=== PATIENT | male | born 1985 | race Caucasian/White ===

== ENCOUNTER 2016-12-09 18:54 | Emergency (ER) | payer OTHER ==
--- NOTE | 2016-12-09 20:51 | ED CLINICAL REPORT ---
Clinical Report - Physicians/Mid Levels [facility] [address] [place] [place] [address] 12/09/2016 18:56 Patient: DAVID SHORT JR Time Seen: 19:40. Arrived- By private vehicle. Historian- patient. HISTORY OF PRESENT ILLNESS Chief Complaint: SKIN RASH. This started about 1 week ago and is still present. Not itchy or painful. It has been generalized in location. No cause has been identified. (Pt states rash came up since he relapsed on heroin.). Similar symptoms previously: Many times. Recent medical care: Not recently seen/assessed. REVIEW OF SYSTEMS No fever, chills, sore throat, cough or difficulty breathing. No hoarseness, lump in throat, enlarged lymph nodes, headache or eye irritation. No chest pain, abdominal pain, nausea, diarrhea or difficulty with urination. No joint pain. All systems otherwise negative, except as recorded above. PAST HISTORY Problems: Substance Abuse. MRSA Infection. Corneal Abrasion. Abscess. Immunizations. Staph Infections. Additional Surgeries: no known surgeries. Medications: Suboxone Sublingual. Allergies: Amoxicillin. Penicillins. SOCIAL HISTORY Smoker- current status unknown. History of drug use: heroin, methamphetamines, marijuana. ADDITIONAL NOTES The nursing notes have been reviewed. PHYSICAL EXAM Vital Signs: 12/09/2016 19:28 BP: 104/60. HR: 50. RR: 16. O2 saturation: 100%. Temp: 98 F. Have been reviewed. Appearance: Alert. Oriented X3. No acute distress. Eyes: Pupils equal, round and reactive to light. Conjunctivae and eyelids normal. ENT: Nose normal. Neck: Neck supple. CVS: Heart sounds normal. Respiratory: No respiratory distress. Skin: Skin warm and dry. Normal skin color. Normal skin turgor. (Pt has scattered papules with scabs over his body surface.). Extremities: Normal external inspection. Extremities nontender. Neuro: Oriented X 3. No motor deficit. No sensory deficit. LABS, X-RAYS, AND EKG Pulse Oximetry: 12/09/2016 19:28 O2 saturation: 100%. (FIO2 - room air). Interpretation: normal. PROGRESS AND PROCEDURES Course of Care: D/w pt: rash is nonspecific, and does not appear infected. No further intervention needed at this time. Pt has been counseled to get help with his drug abuse. Patient counseled in person regarding the patient's stable condition, test results, diagnosis and need for follow-up. Concerns were addressed. Old medical records reviewed. Disposition: Discharged. Condition: stable. CLINICAL IMPRESSION Single superficial abscess to the left lower extremity (buttock). INSTRUCTIONS (You may try antibiotics first, and see if the infection resolves on its own. You will need to hot-pack or hot-soak the area 3 times a day, at least, for 20 minutes each time, at least. Use the hottest pack/water you can stand without burning yourself. Do not put hot plastic directly against your skin (as in a Ziplock bag)--put a pillowcase or other thin cloth over it. Take all the antibiotics until the pills are gone.). Warnings: GENERAL WARNINGS: Return or contact your physician immediately if your condition worsens or changes unexpectedly, if not improving as expected, or if other problems arise. Your Current Medications: CONTINUE TAKING THE FOLLOWING MEDICATIONS: Suboxone Sublingual. Prescription Medications: Bactrim DS 800 mg / 160 mg: take 1 tablet orally every 12 hours for 7 days. No refill. Substitution is permissible. Follow-up: Follow up with your doctor in five days if not better. Understanding of the discharge instructions verbalized by patient. (Electronically signed by Shakira Quijano MD 12/18/2016 8:21)
--- NOTE | 2016-12-09 20:51 | ED NURSING NOTES ---
Clinical Report - Nurses [facility] [address] [place] [address] 12/09/2016 18:56 Patient: DAVID SHORT JR TRIAGE Triage time 9. Acuity: LEVEL 4. Chief Complaint: SKIN LESION. --19:36 Manuel Lisa R.N. 19:28 12/09/16. BP: 104/60. HR: 50. RR: 16. O2 saturation: 100%. Temp: 98 F. Pain level now 05/22. --19:36 Manuel Lisa R.N. Weight: 72.5 kg stated. Height/Length: 69 inches Per Patient. BMI: 23.6. --19:36 Manuel Lisa R.N. Medications Suboxone Sublingual. --19:33 Manuel Lisa R.N. Allergies Amoxicillin. Penicillins. --19:34 Manuel Lisa R.N. History Arrived by private vehicle. Historian: patient. Accompanied by friend. Reported as generalized in location. Onset. (1 1/2 weeks). ( pt started using heroin again and developed sores all over body.). 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 SOCIAL HX: Heavy tobacco smoker- 1 pack per day. History of drug use: heroin, methamphetamines, marijuana. Recently used drugs days ago. FALL RISK ASSESSMENT: Fall risk assessment completed. No fall risk identified. NUTRITIONAL RISK ASSESSMENT: The nutritional risk assessment revealed no deficiencies. FUNCTIONAL ASSESSMENT: Functional assessment: no impairments noted. LEARNING NEEDS ASSESSMENT: The learning needs assessment revealed no barriers. SKIN INTEGRITY ASSESSMENT: Skin integrity risk assessment completed. No skin integrity risk identified. --19:36 Manuel Lisa R.N. Interventions ID band on patient. --19:36 Manuel Lisa R.N. PHYSICAL ASSESSMENT Ambulatory to room. GENERAL / NEURO / PSYCH: Alert. The patient does not appear to be in acute distress. Oriented X 4. HEENT: Pupils equal, round and reactive to light. Mucous membranes are pink. RESPIRATORY: Respirations not labored. Breath sounds within normal limits. CVS: Capillary refill less than 2 seconds. Pulses within normal limits. GI / : Abdomen nontender. SKIN: Skin is warm and dry. Multiple skin lesions present- in various stages of healing. Normal skin turgor. --19:37 Manuel Lisa R.N. NURSING PROGRESS NOTES Head of bed elevated. Reassurance given. Patient identifiers checked. Call light placed in reach. Bed placed in lowest position. Brakes of bed on. --19:37 Manuel Lisa R.N. DISPOSITION / DISCHARGE Departure time: 2054. Condition at departure: improved. No learning barriers present. Discharge instructions provided and reviewed with the patient. Reviewed warnings. Reviewed medication(s). Treatments reviewed. Patient verbalized understanding. Written instructions provided in [place]. The patient was discharged by the physician. He was discharged home and accompanied by loom overhauler. He left the Emergency Department ambulatory and via private vehicle. Interactive Media Marketing Strategist driving. FALL RISK ASSESSMENT: Fall risk assessment completed. No fall risk identified. --20:59 Manuel Lisa R.N. 20:57 12/09/16. BP: 110/66. HR: 50. RR: 16. O2 saturation: 98%. Temp: 98 F. Pain level now 10. --20:59 Manuel Lisa R.N. Locked/Released at 12/09/2016 20:59 by Manuel Lisa R.N.
--- NOTE | 2016-12-09 20:51 | ED NURSING NOTES ---
Clinical Report - Nurses [facility] [address] [place] [place] [address] 12/09/2016 18:56 Patient: DAVID SHORT JR TRIAGE Triage time 9. Acuity: LEVEL 4. Chief Complaint: SKIN LESION. --19:36 Manuel Lisa R.N. 19:28 12/09/16. BP: 104/60. HR: 50. RR: 16. O2 saturation: 100%. Temp: 98 F. Pain level now 05/22. --19:36 Manuel Lisa R.N. Weight: 72.5 kg stated. Height/Length: 69 inches Per Patient. BMI: 23.6. --19:36 Manuel Lisa R.N. Medications Suboxone Sublingual. --19:33 Manuel Lisa R.N. Allergies Amoxicillin. Penicillins. --19:34 Manuel Lisa R.N. History Arrived by private vehicle. Historian: patient. Accompanied by friend. Reported as generalized in location. Onset. (1 1/2 weeks). ( pt started using heroin again and developed sores all over body.). 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 SOCIAL HX: Heavy tobacco smoker- 1 pack per day. History of drug use: heroin, methamphetamines, marijuana. Recently used drugs days ago. FALL RISK ASSESSMENT: Fall risk assessment completed. No fall risk identified. NUTRITIONAL RISK ASSESSMENT: The nutritional risk assessment revealed no deficiencies. FUNCTIONAL ASSESSMENT: Functional assessment: no impairments noted. LEARNING NEEDS ASSESSMENT: The learning needs assessment revealed no barriers. SKIN INTEGRITY ASSESSMENT: Skin integrity risk assessment completed. No skin integrity risk identified. --19:36 Manuel Lisa R.N. Interventions ID band on patient. --19:36 Manuel Lisa R.N. PHYSICAL ASSESSMENT Ambulatory to room. GENERAL / NEURO / PSYCH: Alert. The patient does not appear to be in acute distress. Oriented X 4. HEENT: Pupils equal, round and reactive to light. Mucous membranes are pink. RESPIRATORY: Respirations not labored. Breath sounds within normal limits. CVS: Capillary refill less than 2 seconds. Pulses within normal limits. GI / : Abdomen nontender. SKIN: Skin is warm and dry. Multiple skin lesions present- in various stages of healing. Normal skin turgor. --19:37 Manuel Lisa R.N. NURSING PROGRESS NOTES Head of bed elevated. Reassurance given. Patient identifiers checked. Call light placed in reach. Bed placed in lowest position. Brakes of bed on. --19:37 Manuel Lisa R.N. DISPOSITION / DISCHARGE Departure time: 2054. Condition at departure: improved. No learning barriers present. Discharge instructions provided and reviewed with the patient. Reviewed warnings. Reviewed medication(s). Treatments reviewed. Patient verbalized understanding. Written instructions provided in [place]. The patient was discharged by the physician. He was discharged home and accompanied by retouching operator. He left the Emergency Department ambulatory and via private vehicle. Early Childhood Educator Aide driving. FALL RISK ASSESSMENT: Fall risk assessment completed. No fall risk identified. --20:59 Manuel Lisa R.N. 20:57 12/09/16. BP: 110/66. HR: 50. RR: 16. O2 saturation: 98%. Temp: 98 F. Pain level now 10. --20:59 Manuel Lisa R.N. Locked/Released at 12/09/2016 20:59 by Manuel Lisa R.N.
--- NOTE | 2016-12-18 08:21 | ED MAR SUMMARY ---
..... Medication Administration Record [facility] [address] [place], [place] [id number] Patient: DAVID SHORT Visit ID: [id number] 31y, M Weight: 72.5 kg Height/Length: 69 in BMI: 23.6 ALLERGIES: Amoxicillin, Penicillins
--- NOTE | 2016-12-18 08:21 | ED MED RECONCILIATION SUMMARY ---
Patient: DAVID SHORT Medication Reconciliation Report [facility] VisitID: [id number] [address] [place] [address] 31y, M Registration Date/Time: 12/09/2016 Weight: 72.5 kg Height/Length: 69 in. BMI: 23.6 ALLERGIES: Amoxicillin, Penicillins The patient's Home Medications are listed below: CONTINUE TAKING THE FOLLOWING MEDICATIONS: Suboxone Sublingual The source(s) of the original Home Medication information: Not obtained. The following Medications were given to the patient in the Emergency Department: None. The following Medications were prescribed to the patient: Bactrim DS 800 mg / 160 mg: take 1 tablet orally every 12 hours for 7 days. No refill. Substitution is permissible. -- Shakira Quijano MD
--- NOTE | 2016-12-18 08:21 | ED MED RECONCILIATION SUMMARY ---
Patient: DAVID SHORT Medication Reconciliation Report [facility] VisitID: [id number] [address] [place] [address] 31y, M Registration Date/Time: 12/09/2016 Weight: 72.5 kg Height/Length: 69 in. BMI: 23.6 ALLERGIES: Amoxicillin, Penicillins The patient's Home Medications are listed below: CONTINUE TAKING THE FOLLOWING MEDICATIONS: Suboxone Sublingual The source(s) of the original Home Medication information: Not obtained. The following Medications were given to the patient in the Emergency Department: None. The following Medications were prescribed to the patient: Bactrim DS 800 mg / 160 mg: take 1 tablet orally every 12 hours for 7 days. No refill. Substitution is permissible. -- Shakira Quijano MD
--- NOTE | 2016-12-18 08:21 | ED MAR SUMMARY ---
..... Medication Administration Record [facility] [address] [place], [place] [id number] Patient: DAVID SHORT Visit ID: [id number] 31y, M Weight: 72.5 kg Height/Length: 69 in BMI: 23.6 ALLERGIES: Amoxicillin, Penicillins
--- NOTE | 2016-12-18 08:21 | ED DISCHARGE INSTRUCTIONS ---
Patient: DAVID SHORT General Instructions [facility] VisitID: [id number] [place] [address] 31y, M Registration Date/Time: 12/09/2016 Single superficial abscess to the left lower extremity (buttock). INSTRUCTIONS (You may try antibiotics first, and see if the infection resolves on its own. You will need to hot-pack or hot-soak the area 3 times a day, at least, for 20 minutes each time, at least. Use the hottest pack/water you can stand without burning yourself. Do not put hot plastic directly against your skin (as in a Ziplock bag)--put a pillowcase or other thin cloth over it. Take all the antibiotics until the pills are gone.). Warnings: GENERAL WARNINGS: Return or contact your physician immediately if your condition worsens or changes unexpectedly, if not improving as expected, or if other problems arise. Your Current Medications: CONTINUE TAKING THE FOLLOWING MEDICATIONS: Suboxone Sublingual. Prescription Medications: Bactrim DS 800 mg / 160 mg: take 1 tablet orally every 12 hours for 7 days. No refill. Substitution is permissible. Follow-up: Follow up with your doctor in five days if not better. Understanding of the discharge instructions verbalized by patient. ADDITIONAL INFORMATION Abscess (Antibiotic Treatment Only) An abscess (sometimes called a boil) occurs when bacteria get trapped under the skin and begin to grow. Pus forms inside the abscess as the body responds to the bacteria. An abscess can occur with an insect bite, ingrown hair, blocked oil gland, pimple, cyst, or puncture wound. In the early stages, redness and tenderness are the only symptoms. Sometimes, this stage can be treated with antibiotics alone. If the abscess does not respond to antibiotic treatment, it will need to be drained with a small cut, under local anesthesia. Home care The following will help you care for your abscess at home: Soak the wound in hot water or apply hot packs (small towel soaked in hot water) to the area for 20 minutes at a time. Do this three to four times a day. Apply antibiotic cream or ointment onto the skin 3-4 times a day, unless something else was prescribed. Some ointments include an antibiotic plus a local pain reliever. If your doctor prescribed antibiotics, do not stop taking this medication until you have finished the prescribed course or the doctor tells you to stop. You may use an [id number] pain medication to control pain, unless another pain medicine was prescribed. If you have chronic liver or kidney disease or ever had a stomach ulcer or GI bleeding, talk with your doctor before using these any of these. Follow-up care Follow up with your health care provider as advised by our staff. Look at your wound each day for the signs of worsening infection listed below. When to seek medical care Get prompt medical attention if any of the following occur: An increase in redness or swelling Red streaks in the skin leading away from the abscess An increase in local pain or swelling Fever of 100.4F (38C) or higher, or as directed by your health care provider Pus or fluid coming from the abscess You have been given the following additional information: Abscess, Antiobiotic Treatment Only (Electronically signed by Shakira Quijano MD 12/18/2016 8:21)
== END 2016-12-09 20:55 | disposition home or self-care (01) ==
LOC: ED SRH 18:54
DX: L02.31 Cutaneous abscess of buttock (principal); F11.10 Opioid abuse, uncomplicated; Z88.0 Allergy status to penicillin